=== PATIENT | male | born 1990 | race Two or more races ===

== ENCOUNTER 2018-10-22 06:19 | Emergency (ER) | payer OTHER ==
[~2018-10-22] VITALS: Ht 182.9 cm; Wt 88.5 kg
[2018-10-22 06:23] VITALS: Ht 182.9 cm; Wt 88.5 kg
[2018-10-22 08:20] VITALS: BP 134/87
== END 2018-10-22 08:20 | disposition left against medical advice (07) ==
LOC: ED 06:19
DX: S91.115A Laceration without foreign body of left lesser toe(s) without damage to nail, initial encounter (principal); G40.909 Epilepsy, unspecified, not intractable, without status epilepticus; Z98.890 Other specified postprocedural states; W26.8XXA Contact with other sharp object(s), not elsewhere classified, initial encounter; Y93.89 Activity, other specified; Y92.89 Other specified places as the place of occurrence of the external cause; Y99.8 Other external cause status
CPT/HCPCS: 90715; J2001